=== PATIENT | female | born 1990 | race Caucasian/White ===

== ENCOUNTER → 2016-12-25 | Outpatient (CLI) | payer MEDICAID, OTHER ==
[~2016-12-25] VITALS: Ht 162.6 cm; Wt 84.8 kg
[~2016-12-25] MED LIST: /METO5TA PO; /PANT40TA PO; ACET325S2 PO; ACET50TA PO; ADDE10TA PO; ADDE30CA PO; BENA25CA PO; HYDR-3713 PO; IBUP60TA PO; LEVS0.124 SL; LIDOCAINE 2% INJ 100 MG/5 ML SDV (FOR ANES.) As Ordered ONE; NS 1,000 ML IV SCH; ONDANSETRON 4MG/2ML VIAL (J2405) As Ordered ONE; ONDANSETRON 4MG/2ML VIAL (J2405) IV ONE; OXYC-208 PO; OXYC7.5T PO; PERCOCET PO; PREN1TAB11 PO; PRENTAB9 PO; PROPOFOL 200 MG/20 ML VIAL As Ordered ONE; RANITAB PO; SENO8.6T9 OR; SIME80TA PO; TYLE325T5 OR; VALT1TAB PO; VITAPRTA PO; XANA1TAB2 PO; ZOFR4TAB3 SL; ZYRT10CA PO; depo provera IM
--- NOTE | 2016-12-25 08:46 | ROOR ---
Patient Name: Clementine Casey Procedure Date: 12/25/2016 8:26 AM Date of : 1990 Age: 26 Room: [facility] Gender: Female Note Status: Finalized Procedure: Colonoscopy to 50 Cms (POOR PREP) Indications: Rectal bleeding, Change in bowel habits Providers: Carlos Atwood MD Referring MD: VINAY JEFFRIES MD Requesting Provider: Medicines: Monitored Anesthesia Care Complications: No immediate complications. Procedure: Pre-Anesthesia Assessment: - The heart rate, respiratory rate, oxygen saturations, blood pressure, adequacy of pulmonary ventilation, and response to care were monitored throughout the procedure. The Colonoscope was introduced through the anus and advanced to the sigmoid colon. The colonoscopy was performed without difficulty. The patient tolerated the procedure well. The quality of the bowel preparation was inadequate. Findings: The perianal and digital rectal examinations were normal. External hemorrhoids were found during retroflexion. The hemorrhoids were small and Grade I (internal hemorrhoids that do not prolapse). The exam was otherwise normal throughout the examined colon. Impression: - Preparation of the colon was inadequate. - External hemorrhoids. - No specimens collected. - The exam was suboptimal due to patient preparation. Recommendation: - Patient has a contact number available for emergencies. The signs and symptoms of potential delayed complications were discussed with the patient. Return to normal activities tomorrow. Written discharge instructions were provided to the patient. - Discharge patient to home. - Continue present medications. - High fiber diet. - Repeat colonoscopy at age 52 for screening purposes. - Return to referring physician. - The findings and recommendations were discussed with the patient's family. Carlos Atwood MD Carlos Atwood MD 12/25/2016 8:45:47 AM This report has been signed electronically. Number of Addenda: 0 Note Initiated On: 12/25/2016 8:26 AM Estimated Blood Loss: Estimated blood loss: none.
[2016-12-25 09:25] VITALS: BP 121/72
== END | disposition home or self-care (01) ==
LOC: M OPP 07:53
PROVIDERS: ATTEND Internal Medicine Gastroenterology
DX: K64.0 First degree hemorrhoids (principal); K64.4 Residual hemorrhoidal skin tags; K62.5 Hemorrhage of anus and rectum; R19.4 Change in bowel habit; Z88.0 Allergy status to penicillin; Z88.1 Allergy status to other antibiotic agents; Z88.5 Allergy status to narcotic agent; Z88.8 Allergy status to other drugs, medicaments and biological substances; F17.210 Nicotine dependence, cigarettes, uncomplicated; Z79.899 Other long term (current) drug therapy; R12 Heartburn; M54.9 Dorsalgia, unspecified; F41.9 Anxiety disorder, unspecified

== ENCOUNTER → 2017-03-12 | Outpatient (CLI) | payer OTHER ==
[~2017-03-12] MED LIST changes: -LIDOCAINE 2% INJ 100 MG/5 ML SDV (FOR ANES.) As Ordered ONE; -NS 1,000 ML IV SCH; -ONDANSETRON 4MG/2ML VIAL (J2405) As Ordered ONE; -ONDANSETRON 4MG/2ML VIAL (J2405) IV ONE; -PROPOFOL 200 MG/20 ML VIAL As Ordered ONE
--- NOTE | 2017-03-13 03:15 | REP ---
Clinical: Trauma. Pain. Technique: AP, lateral, bilateral oblique views hands . Findings: The osseous structures and joint spaces are intact and normal. There is no evidence for acute fracture or dislocation. Surrounding soft tissues are unremarkable. No subcutaneous emphysema or radiodense foreign body. Impression: No acute fracture or dislocation. Signed by Tim Pardo MD 03/13/2017 03:06 A
== END ==
LOC: M SMT 10:33
PROVIDERS: ATTEND Family Medicine
DX: M79.641 Pain in right hand (principal)

== ENCOUNTER 2017-04-28 21:27 | Emergency (ER) | payer OTHER ==
[~2017-04-28] VITALS: Ht 162.6 cm; Wt 86.2 kg
[~2017-04-28 21:27] MED LIST changes: -ADDE30CA PO; +ADDE30CA3 PO
[2017-04-28] MEDS ORDERED: ADDE30CA3 PO (21:39)
[2017-04-28] MEDS ORDERED: MEDR15VL IM (21:43)
[2017-04-28 22:26] LABS: CONTROL LINE UCG INT CTR LINE PRESENT
[2017-04-28] MEDS ORDERED: NAPROXEN 250 MG TAB PO ONE (23:45)
[2017-04-29] MEDS ORDERED: PERCOCET 5MG/325MG TAB PO ONE (01:00)
--- NOTE | 2017-04-29 01:00 | REPUSA ---
CLINICAL HISTORY: Pelvic pain. History of ovarian cysts. TECHNIQUE: Realtime sonographic images were obtained in multiple projections via TA approach. COMMENTS: The uterus is anteverted measuring 8.9x4.4x5.2 cm. The endometrial echo pattern is within normal limi ts measuring 6.7 mm. There is no evidence of free fluid within the pelvic cul-de-sac. The right ovary measures 4.2x3x3.4 cm and the left ovary measures 2.4x1.7x2.1 cm. Both ovaries are fr ee of solid or cystic mass. There is a right ovarian follicle measuring 1.8 cm. The bladder measures a 4.3x5.1x6.6 cm. There is no evidence for abnormal vascularity. Normal bilateral ovarian flow. IMPRESSION: Right ovarian normal follicle. Otherwise, unremarkable exam. Thank you for your kind referral of this patient.
[2017-04-29 01:04] VITALS: BP 135/65
[2017-09-14] MEDS ORDERED: RANI75TA9 PO (18:21)
[2017-09-14] MEDS ORDERED: PREN200C PO (18:21)
[2017-09-14] MEDS ORDERED: FIOR1CAP PO (18:21)
== END 2017-04-29 01:05 | disposition home or self-care (01) ==
LOC: M ED 22:27
DX: R10.30 Lower abdominal pain, unspecified (principal); N83.01 Follicular cyst of right ovary; G43.909 Migraine, unspecified, not intractable, without status migrainosus; Z79.899 Other long term (current) drug therapy; Z88.0 Allergy status to penicillin; Z88.1 Allergy status to other antibiotic agents; Z88.5 Allergy status to narcotic agent

== ENCOUNTER 2017-07-01 17:53 | Emergency (ER) | payer OTHER ==
[~2017-07-01] VITALS: Ht 162.6 cm; Wt 85.3 kg
[~2017-07-01 17:53] MED LIST changes: +MEDR15VL IM
[2017-07-01] MEDS ORDERED: NS 1,000 ML IV ONE (20:00)
[2017-07-01 20:17] LABS: BASO % 0.3 % (0.0-1.0); EOS # 0.2 K/mm3 (0.0-0.50); EOS % 2.5 % (0.0-3.0); LARGE UNSTAINED CELL # 0.1 K/mm3 (0.0-0.4); LARGE UNSTAINED CELL % 1.4 % (0.0-4.0); LYMPH # 1.6 K/mm3 (1.5-6.5); MEAN CORPUSCULAR HEMOGLOBIN 30.6 pg (27.0-33.0); MEAN CORPUSCULAR HGB CONC 34.1 g/dl (32.0-36.5); MEAN CORPUSCULAR VOLUME 89.6 fl (80.0-96.0); MONO # 0.3 K/mm3 (0.0-0.8); MONO % 3.8 % (0.0-5.0); NEUTROPHILS # 4.6 K/mm3 (1.8-7.7); PLATELET COUNT, AUTOMATED 229 k/mm3 (150-450); RED CELL DISTRIBUTION WIDTH 12.6 % (11.5-14.5); WHITE BLOOD COUNT 6.6 K/mm3 (4.0-10.0)
[2017-07-01 20:51] LABS: ALBUMIN/GLOBULIN RATIO 1.14 (1.00-1.93); ALKALINE PHOSPHATASE 74 U/L (45-117); ALT/SGPT 19 U/L (12-78); ANION GAP 10 MEQ/L (8-16); AST/SGOT 9 U/L (15-37); BILIRUBIN,DIRECT < 0.1 MG/DL (0.0-0.2); BILIRUBIN,TOTAL 0.3 MG/DL (0.2-1.0); BLOOD UREA NITROGEN 12 MG/DL (7-18); CALCIUM LEVEL 9.3 MG/DL (8.5-10.1); CARBON DIOXIDE LEVEL 23 MEQ/L (21-32); CHLORIDE LEVEL 108 MEQ/L (98-107); CREATININE FOR GFR 0.72 MG/DL (0.55-1.02); GLOMERULAR FILTRATION RATE > 60.0 (>60); GLUCOSE, FASTING 90 MG/DL (70-105); POTASSIUM SERUM 3.8 MEQ/L (3.5-5.1); SODIUM LEVEL 141 MEQ/L (136-145); TOTAL PROTEIN 7.5 GM/DL (6.4-8.2)
[2017-07-01 21:10] LABS: HCG, SERUM QUANTITATIVE 522 MIU/ML
--- NOTE | 2017-07-01 21:20 | REPUSA ---
Clinical history: Pain. Findings: Real-time transabdominal and transvaginal ultrasound images of the pelvis were obtained. A retroverted uterus is noted, measuring 7.1 x 4.8 x 5.1 cm. The uterus demonstrates normal echotexture and echogenicity. The endometrial stripe measures 11 mm and is within normal limits. There is a smal l Nabothian cyst. The right ovary measures 2.6 x 1.2 x 2.4 cm. The left ovary measures 2.5 x 1.7 x 2. 3 cm. No adnexal masses are seen. Color Doppler flow is seen within both ovaries. There is no evidenc e of free fluid. Impression: No focal abnormality, without evidence of an intrauterine . Differential diagnos is includes early , missed , or ectopic . Follow-up with serial serum beta hCG levels is recommended for further evaluation.
[2017-07-01 22:22] VITALS: BP 118/69
[2017-09-14] MEDS ORDERED: PREN200C PO (18:21)
[2017-09-14] MEDS ORDERED: RANI75TA9 PO (18:21)
[2017-09-14] MEDS ORDERED: FIOR1CAP PO (18:21)
== END 2017-07-01 22:26 | disposition home or self-care (01) ==
LOC: M ED 17:53
DX: O99.89 Other specified diseases and conditions complicating pregnancy, childbirth and the puerperium (principal); G43.909 Migraine, unspecified, not intractable, without status migrainosus; N83.299 Other ovarian cyst, unspecified side; Z79.899 Other long term (current) drug therapy; Z3A.01 Less than 8 weeks gestation of pregnancy; Z88.1 Allergy status to other antibiotic agents; Z88.5 Allergy status to narcotic agent; Z88.0 Allergy status to penicillin

== ENCOUNTER 2017-07-03 21:54 | Emergency (ER) | payer OTHER ==
[~2017-07-03] VITALS: Ht 162.6 cm; Wt 85.5 kg
[~2017-07-03 21:54] MED LIST changes: -FIOR1CAP PO; -PREN200C PO; -RANI75TA9 PO; -TYLE325C PO
[2017-07-03] MEDS ORDERED: TYLE325C PO (22:18)
[2017-07-04 01:17] LABS: BASO % 0.5 % (0.0-1.0); EOS # 0.1 K/mm3 (0.0-0.50); EOS % 1.3 % (0.0-3.0); LARGE UNSTAINED CELL # 0.1 K/mm3 (0.0-0.4); LARGE UNSTAINED CELL % 2.3 % (0.0-4.0); LYMPH # 1.7 K/mm3 (1.5-6.5); LYMPH % 36.4 % (24.0-44.0); MEAN CORPUSCULAR HEMOGLOBIN 30.3 pg (27.0-33.0); MEAN CORPUSCULAR HGB CONC 34.4 g/dl (32.0-36.5); MEAN CORPUSCULAR VOLUME 88.1 fl (80.0-96.0); MONO # 0.2 K/mm3 (0.0-0.8); MONO % 5.2 % (0.0-5.0); NEUTROPHILS # 2.6 K/mm3 (1.8-7.7); NEUTROPHILS % 54.4 % (36.0-66.0); PLATELET COUNT, AUTOMATED 201 k/mm3 (150-450); RED CELL DISTRIBUTION WIDTH 12.4 % (11.5-14.5); WHITE BLOOD COUNT 4.7 K/mm3 (4.0-10.0)
[2017-07-04 01:43] LABS: CONTROL LINE HCG INT CTR LINE PRESENT
[2017-07-04 01:47] LABS: ANION GAP 7 MEQ/L (8-16); BLOOD UREA NITROGEN 8 MG/DL (7-18); CALCIUM LEVEL 8.7 MG/DL (8.5-10.1); CARBON DIOXIDE LEVEL 26 MEQ/L (21-32); CHLORIDE LEVEL 108 MEQ/L (98-107); CREATININE FOR GFR 0.65 MG/DL (0.55-1.02); GLOMERULAR FILTRATION RATE > 60.0 (>60); GLUCOSE, FASTING 89 MG/DL (70-105); POTASSIUM SERUM 3.8 MEQ/L (3.5-5.1); SODIUM LEVEL 141 MEQ/L (136-145)
--- NOTE | 2017-07-04 02:20 | REPUSA ---
CLINICAL HISTORY: Pain. TECHNIQUE: Endovaginal ultrasound of the pelvis was performed. FINDINGS: Uterus is normal in size measuring 7.8x4.6x5.5 cm. Retroverted uterus. Right ovary measures 2.8x1.2x1.3 cm. Left ovary measures 3.5x1.6x1-2.7 cm. Both ovaries are identified without adnexal mass or pelvic fluid collection. An anechoic structure is noted in the endometrial cavity measuring 4.4 mm. No decidual reaction is id entified. No pole is noted. IMPRESSION: Intrauterine anechoic structure as above. No adnexal mass. Followup is recommended.
[2017-07-04 02:31] LABS: HCG, SERUM QUANTITATIVE 972 MIU/ML
[2017-07-04 03:43] VITALS: BP 109/62
[2017-09-14] MEDS ORDERED: FIOR1CAP PO (18:21)
[2017-09-14] MEDS ORDERED: PREN200C PO (18:21)
[2017-09-14] MEDS ORDERED: RANI75TA9 PO (18:21)
== END 2017-07-04 03:44 | disposition home or self-care (01) ==
LOC: M ED 21:54
DX: O99.89 Other specified diseases and conditions complicating pregnancy, childbirth and the puerperium (principal); R10.9 Unspecified abdominal pain; Z79.899 Other long term (current) drug therapy; Z88.5 Allergy status to narcotic agent; Z88.0 Allergy status to penicillin; Z88.1 Allergy status to other antibiotic agents

== ENCOUNTER → 2017-07-03 | Outpatient (REF) | payer OTHER ==
[~2017-07-03] MED LIST changes: +FIOR1CAP PO; +PREN200C PO; +RANI75TA9 PO; +TYLE325C PO
== END ==
LOC: M LAB REF 08:15
PROVIDERS: ATTEND Physician Assistant
DX: Z32.00 Encounter for pregnancy test, result unknown (principal)

== ENCOUNTER 2017-07-09 23:46 | Emergency (ER) | payer OTHER ==
[~2017-07-09] VITALS: Ht 162.6 cm; Wt 81.8 kg
[~2017-07-09 23:46] MED LIST changes: +TYLE325C PO
[2017-07-10] MEDS ORDERED: LIDOCAINE VISCOUS 2% SOLN 15ML UDC PO ONE (00:45)
[2017-07-10] MEDS ORDERED: MAALOX 30 ML SUSP *UDC PO ONE (00:45)
[2017-07-10 01:51] VITALS: BP 110/59
[2017-09-14] MEDS ORDERED: FIOR1CAP PO (18:21)
[2017-09-14] MEDS ORDERED: PREN200C PO (18:21)
[2017-09-14] MEDS ORDERED: RANI75TA9 PO (18:21)
== END 2017-07-10 01:58 | disposition home or self-care (01) ==
LOC: M ED 23:46
DX: O99.89 Other specified diseases and conditions complicating pregnancy, childbirth and the puerperium (principal); G43.909 Migraine, unspecified, not intractable, without status migrainosus; O99.340 Other mental disorders complicating pregnancy, unspecified trimester; Z79.899 Other long term (current) drug therapy; Z88.5 Allergy status to narcotic agent; Z88.0 Allergy status to penicillin; Z88.1 Allergy status to other antibiotic agents; Z3A.00 Weeks of gestation of pregnancy not specified

== ENCOUNTER → 2017-07-25 | Outpatient (CLI) | payer OTHER ==
[~2017-07-25] MED LIST changes: +FIOR1CAP PO; +PREN200C PO; +RANI75TA9 PO
[2017-07-25 09:59] LABS: BASO % 0.2 % (0.0-1.0); EOS # 0.1 K/mm3 (0.0-0.50); EOS % 1.8 % (0.0-3.0); LARGE UNSTAINED CELL # 0.1 K/mm3 (0.0-0.4); LARGE UNSTAINED CELL % 1.4 % (0.0-4.0); LYMPH # 1.3 K/mm3 (1.5-6.5); LYMPH % 25.6 % (24.0-44.0); MEAN CORPUSCULAR HEMOGLOBIN 30.5 pg (27.0-33.0); MEAN CORPUSCULAR VOLUME 89.7 fl (80.0-96.0); MONO # 0.2 K/mm3 (0.0-0.8); MONO % 3.6 % (0.0-5.0); NEUTROPHILS # 3.4 K/mm3 (1.8-7.7); NEUTROPHILS % 67.6 % (36.0-66.0); PLATELET COUNT, AUTOMATED 185 k/mm3 (150-450); RED CELL DISTRIBUTION WIDTH 12.5 % (11.5-14.5)
[2017-07-25 12:48] LABS: HBsAg Prenatal NEGATIVE (NEGATIVE)
== END ==
LOC: M SMT 08:38
PROVIDERS: ATTEND Advanced Practice Midwife
DX: Z34.81 Encounter for supervision of other normal pregnancy, first trimester (principal)

== ENCOUNTER → 2017-10-10 | Outpatient (CLI) | payer OTHER ==
--- NOTE | 2017-10-10 11:52 | REP ---
Clinical: Anatomical evaluation. Comparison: 07/04/2017 . Findings: Examination demonstrates a single live intrauterine in cephalic presentation. motion is identified by technologist. Placenta is noted anteriorly and grade one without evidence for placenta previa or abruption. Amniotic fluid volume is normal. Cervix measures 3.2 cm in length and appears closed. No evidence for nuchal cord. Gestational age by LMP 19 weeks 5 days with NADRE 03/01/2018 . Gestational age by current measurements 19 weeks 0 days with NADER 03/06/2018 . FHR equals 138 beats per minute. BPD 4.4 cm 19 weeks 2 days HC 16.7 cm 19 weeks 3 days AC 13.9 cm 19 weeks 2 days FL 2.9 cm 18 weeks 6 days HL 2.6 cm 18 weeks 2 days HC/AC ratio 1.20 Estimated weight 277 grams ( 28th percentile). Anatomical assessment demonstrates normal structures including cranium, choroid plexus, cavum, cerebellum/posterior fossa, lungs, four-chamber heart, diaphragm, stomach, cord insertion/three-vessel cord, kidneys/bladder, spine, and extremities. Impression: Single live intrauterine in cephalic presentation demonstrating appropriate interval growth. While no gross abnormalities are identified, limited evaluation of the facial features and cardiac ventricular outflow tracts may warrant reevaluation and follow-up. Signed by Tim Pardo MD 10/10/2017 11:44 A
== END ==
LOC: M RAD 09:57
PROVIDERS: ATTEND Advanced Practice Midwife
DX: Z34.81 Encounter for supervision of other normal pregnancy, first trimester (principal)

== ENCOUNTER → 2017-11-28 | Outpatient (CLI) | payer OTHER ==
[2017-11-28 12:53] LABS: HEMATOCRIT 32.7 % (36.0-47.0); HEMOGLOBIN 11.1 g/dl (12.0-16.0); MEAN CORPUSCULAR HEMOGLOBIN 30.1 pg (27.0-33.0); MEAN CORPUSCULAR HGB CONC 33.9 g/dl (32.0-36.5); MEAN CORPUSCULAR VOLUME 88.6 fl (80.0-96.0); PLATELET COUNT, AUTOMATED 181 10^3/uL (150-450); RED BLOOD COUNT 3.69 10^6/uL (4.00-5.40); RED CELL DISTRIBUTION WIDTH 12.6 % (11.5-14.5); WHITE BLOOD COUNT 7.9 10^3/uL (4.0-10.0)
[2017-11-28 13:22] LABS: GLUCOSE CHALLENGE TEST 1 HOUR 153 MG/DL (LESS THAN 140)
[2017-12-01 09:30] LABS: TYPE AND SCREEN 1 1
== END ==
LOC: M LAB 10:16
DX: Z36.89 Encounter for other specified antenatal screening (principal); Z3A.00 Weeks of gestation of pregnancy not specified
CPT/HCPCS: 76816

== ENCOUNTER → 2017-12-12 | Outpatient (CLI) | payer OTHER ==
[2017-12-12 09:51] LABS: GLUCOSE, FASTING 84 MG/DL (LESS THAN 95)
[2017-12-12 10:34] LABS: 1 HR GLUCOSE 145 MG/DL (LESS THAN 180)
[2017-12-12 10:56] LABS: 2 HR GLUCOSE 139 MG/DL (LESS THAN 155)
[2017-12-12 12:33] LABS: 3 HR GLUCOSE 83 MG/DL (LESS THAN 140)
== END ==
LOC: M LAB 08:04
DX: Z36.89 Encounter for other specified antenatal screening (principal); Z3A.00 Weeks of gestation of pregnancy not specified
CPT/HCPCS: 82951

== ENCOUNTER → 2018-01-01 | Outpatient (REF) | payer OTHER | LOC: M LAB REF 20:44 | DX: J11.1 Influenza due to unidentified influenza virus with other respiratory manifestations (principal) | CPT/HCPCS: 87502 ==

== ENCOUNTER 2018-01-21 21:10 | Outpatient (CLI) | payer OTHER | END 2018-01-21 22:14 | disposition home or self-care (01) | LOC: M LDO 21:10 | DX: O26.893 Other specified pregnancy related conditions, third trimester (principal); R10.30 Lower abdominal pain, unspecified; M54.9 Dorsalgia, unspecified; O47.03 False labor before 37 completed weeks of gestation, third trimester; Z3A.33 33 weeks gestation of pregnancy ==

== ENCOUNTER → 2018-02-06 | Outpatient (CLI) | payer OTHER | LOC: M RAD 11:59 | DX: M79.605 Pain in left leg (principal) | CPT/HCPCS: 93971 ==

== ENCOUNTER → 2018-02-09 | Outpatient (REF) | payer OTHER | LOC: M LAB REF 16:57 | DX: Z34.83 Encounter for supervision of other normal pregnancy, third trimester (principal); Z3A.00 Weeks of gestation of pregnancy not specified ==

== ENCOUNTER 2018-02-28 12:13 | Outpatient (CLI) | payer OTHER | END 2018-02-28 13:25 | disposition home or self-care (01) | LOC: M LDO 12:13 | DX: O47.1 False labor at or after 37 completed weeks of gestation (principal); Z3A.38 38 weeks gestation of pregnancy ==

== ENCOUNTER 2018-03-05 14:32 | Inpatient (IN) | payer OTHER ==
[2018-03-05 15:59] LABS: HEMATOCRIT 34.1 % (36.0-47.0); HEMOGLOBIN 11.3 g/dl (12.0-15.5); MEAN CORPUSCULAR HEMOGLOBIN 27.8 pg (27.0-33.0); MEAN CORPUSCULAR HGB CONC 33.1 g/dl (32.0-36.5); PLATELET COUNT, AUTOMATED 215 10^3/uL (150-450); RED BLOOD COUNT 4.06 10^6/uL (4.00-5.40); RED CELL DISTRIBUTION WIDTH 14.6 % (11.5-14.5); WHITE BLOOD COUNT 8.9 10^3/uL (4.0-10.0)
[2018-03-05] MEDS: BICITRA 30ML SOLN UDC PO (16:10)
[2018-03-05] MEDS: LR 1,000 ML IV (17:30)
[2018-03-05] MEDS: OXYTOCIN DRIP 30 UNITS in APPROPRIATE DILUENT 1 EA IV (17:30)
[2018-03-05] MEDS: CALCIUM CARBONATE 500 MG CHEW U/D PO (20:45)
[2018-03-05] MEDS: BUTORPHANOL 2 MG/ML INJ (J0595) IV (22:15)
[2018-03-05] MEDS: PROMETHAZINE INJ 25 MG/ML VIAL (J2550) IV (22:30)
[2018-03-05] MEDS ORDERED: METHYLERGONOVINE MALEATE 0.2 MG TAB PO (23:45)
[2018-03-05] MEDS ORDERED: DIBUCAINE 1% OINTMENT 30GM TOP (23:45)
[2018-03-05] MEDS ORDERED: MOM 30ML SUSPENSION UDC PO (23:45)
[2018-03-05] MEDS ORDERED: ANUSOL HC CREAM 30GM TOP (23:45)
[2018-03-05] MEDS ORDERED: DOCUSATE SODIUM 100 MG CAP PO (23:45)
[2018-03-06] MEDS: OXYTOCIN DRIP 30 UNITS in APPROPRIATE DILUENT 1 EA IV (00:59)
[2018-03-06] MEDS: MEASLES,MUMPS,RUBELLA VACCINE INJ (MMR-II) (90707) SC (01:06)
[2018-03-06] MEDS: IBUPROFEN 800 MG TAB PO ×3 (01:13→19:59)
[2018-03-06] MEDS: PRENATAL VITAMINS CHEWABLE TABLET PO (08:59)
[2018-03-06] MEDS ORDERED: medroxyPROGESTERone ACET IM SUSP 150 MG/ML VIAL (J1050) IM (11:00)
[2018-03-06 12:38] LABS: FETAL SCREEN PROF. 1 1
[2018-03-06] MEDS: RHOGAM 300 MCG (1500 IU) INJ (J2790) IM (12:58)
[2018-03-06] MEDS: ACETAMINOPHEN 500 MG TAB PO (19:58)
[2018-03-07] MEDS: IBUPROFEN 800 MG TAB PO (07:52)
[2018-03-07] MEDS: PRENATAL VITAMINS CHEWABLE TABLET PO (07:53)
[2018-03-07] MEDS: medroxyPROGESTERone ACET IM SUSP 150 MG/ML VIAL (J1050) IM (09:55)
== END 2018-03-07 10:40 | disposition home or self-care (01) | DRG 560 ==
LOC: M LDI 14:32 → M OBS 03-06 00:55
PROVIDERS: Obstetrics & Gynecology
PROC: 10E0XZZ Delivery of Products of Conception, External Approach (ICD-10-PCS; principal; 2018-03-05)
PROC: 3E033VJ Introduction of Other Hormone into Peripheral Vein, Percutaneous Approach (ICD-10-PCS; 2018-03-05)
PROC: 30233S1 Transfusion of Nonautologous Globulin into Peripheral Vein, Percutaneous Approach (ICD-10-PCS; 2018-03-06)
DX: O80 Encounter for full-term uncomplicated delivery (principal); Z88.0 Allergy status to penicillin; Z37.0 Single live birth; Z3A.39 39 weeks gestation of pregnancy; Z90.49 Acquired absence of other specified parts of digestive tract; Z88.1 Allergy status to other antibiotic agents; Z88.5 Allergy status to narcotic agent

== ENCOUNTER → 2018-06-25 | Outpatient (REF) | payer OTHER ==
[2018-06-30 15:19] LABS: HPV HYBRID CAPTURE II Negative (Negative)
== END ==
LOC: M LAB REF 14:35
DX: Z12.4 Encounter for screening for malignant neoplasm of cervix (principal); R87.610 Atypical squamous cells of undetermined significance on cytologic smear of cervix (ASC-US)
CPT/HCPCS: 88142

== ENCOUNTER 2019-08-02 18:23 | Emergency (ER) | payer OTHER ==
[~2019-08-02] VITALS: Ht 162.6 cm; Wt 100.9 kg
[~2019-08-02 18:23] MED LIST changes: -/METO5TA PO; -/PANT40TA PO; -ACET50TA PO; +IBUP-1114 PO; +IBUP600T42 PO; -IBUP60TA PO; +MACR100C43 PO; +MAPA500T2 PO; +MEDR150I10 IM; -MEDR15VL IM; +METO1TAB88 PO; +ONDA-228 SL; +OXYC1TAB23 PO; -PERCOCET PO; +PROT1TAB2 PO; +RANI-356 PO; +RANI1SYP PO; +RANI75TA15 PO; -RANI75TA9 PO; -ZOFR4TAB3 SL
[2019-08-02] MEDS ORDERED: CLOTRIMAZOLE 1% TOPICAL CREAM 30GM TOP STA (22:33)
[2019-08-02] MEDS ORDERED: CLOTCRE3 TOP (22:35)
[2019-08-02 22:42] VITALS: BP 132/91
== END 2019-08-02 22:53 | disposition home or self-care (01) ==
LOC: M ED 18:23
DX: R21 Rash and other nonspecific skin eruption (principal); Z88.0 Allergy status to penicillin; Z88.1 Allergy status to other antibiotic agents; Z88.6 Allergy status to analgesic agent

== ENCOUNTER → 2019-08-25 | Outpatient (CLI) | payer OTHER ==
[~2019-08-25] MED LIST changes: +CLOTCRE3 TOP
[2019-08-25 13:17] LABS: BASO % 0.5 % (0.0-1.0); EOS # 0.2 10^3/uL (0.0-0.5); EOS % 2.4 % (0.0-3.0); HEMOGLOBIN 14.5 g/dl (12.0-15.5); LYMPH % 32.3 % (24.0-44.0); MEAN CORPUSCULAR HEMOGLOBIN 29.5 pg (27.0-33.0); MEAN CORPUSCULAR HGB CONC 34.5 g/dl (32.0-36.5); MEAN CORPUSCULAR VOLUME 85.4 fl (80.0-96.0); MONO # 0.4 10^3/uL (0.0-0.8); MONO % 6.7 % (0.0-5.0); NEUTROPHILS # 3.6 10^3/uL (1.5-8.5); NEUTROPHILS % 57.9 % (36.0-66.0); PLATELET COUNT, AUTOMATED 241 10^3/uL (150-450); RED BLOOD COUNT 4.92 10^6/uL (4.00-5.40); WHITE BLOOD COUNT 6.2 10^3/uL (4.0-10.0)
[2019-08-25 13:23] LABS: ALBUMIN 3.8 GM/DL (3.2-5.2); ALT/SGPT 23 U/L (12-78); BILIRUBIN,TOTAL 0.6 MG/DL (0.2-1.0); BLOOD UREA NITROGEN 11 MG/DL (7-18); CALCIUM LEVEL 9.5 MG/DL (8.5-10.1); CARBON DIOXIDE LEVEL 25 MEQ/L (21-32); CHLORIDE LEVEL 108 MEQ/L (98-107); CHOLESTEROL LEVEL 200 MG/DL (<200); CHOLESTEROL RISK RATIO 5.263 (<5); CREATININE FOR GFR 0.82 MG/DL (0.55-1.30); FREE T4 0.98 NG/DL (0.76-1.46); GLOMERULAR FILTRATION RATE > 60.0 (>60); GLUCOSE, FASTING 91 MG/DL (70-100); HDL CHOLESTEROL 38 MG/DL (>40); LDL CHOLESTEROL 128 MG/DL (<100); NON-HDL-C 162 MG/DL; POTASSIUM SERUM 4.4 MEQ/L (3.5-5.1); SODIUM LEVEL 138 MEQ/L (136-145); TRIGLYCERIDES LEVEL 172 MG/DL (<150)
[2019-08-25 13:26] LABS: TOTAL 25(OH) VITAMIN D 18.7 NG/ML (30.0-100.0)
[2019-08-25 13:55] LABS: HEMOGLOBIN A1c 5.2 %
[2019-08-27 00:07] LABS: ANA (HEP2) Negative (.); TISSUE TRANSGLUTAMINASE IgA <2 U/mL (0-3); TISSUE TRANSGLUTAMINASE IgG 4 U/mL (0-5)
== END ==
LOC: M SMT 11:10
PROVIDERS: ATTEND Physician Assistant
DX: Z13.29 Encounter for screening for other suspected endocrine disorder (principal); Z13.220 Encounter for screening for lipoid disorders; K58.0 Irritable bowel syndrome with diarrhea

== ENCOUNTER → 2019-12-10 | Outpatient (CLI) | payer OTHER ==
[~2019-12-10] MED LIST changes: -RANI-356 PO; +RANI-397 PO
[2019-12-10 09:10] LABS: BASO % 0.3 % (0.0-1.0); EOS # 0.1 10^3/uL (0.0-0.5); EOS % 2.2 % (0.0-3.0); HEMATOCRIT 38.6 % (36.0-47.0); LYMPH # 1.4 10^3/uL (1.5-5.0); LYMPH % 22.7 % (24.0-44.0); MEAN CORPUSCULAR HEMOGLOBIN 28.8 pg (27.0-33.0); MEAN CORPUSCULAR HGB CONC 33.7 g/dl (32.0-36.5); MEAN CORPUSCULAR VOLUME 85.6 fl (80.0-96.0); MONO # 0.4 10^3/uL (0.0-0.8); MONO % 5.9 % (0.0-5.0); NEUTROPHILS # 4.1 10^3/uL (1.5-8.5); NEUTROPHILS % 68.6 % (36.0-66.0); PLATELET COUNT, AUTOMATED 199 10^3/uL (150-450); RED BLOOD COUNT 4.51 10^6/uL (4.00-5.40)
[2019-12-10 09:39] LABS: ALBUMIN 3.7 GM/DL (3.2-5.2); ALT/SGPT 21 U/L (12-78); BILIRUBIN,TOTAL 0.5 MG/DL (0.2-1.0); BLOOD UREA NITROGEN 10 MG/DL (7-18); CALCIUM LEVEL 8.4 MG/DL (8.5-10.1); CARBON DIOXIDE LEVEL 24 MEQ/L (21-32); CHLORIDE LEVEL 110 MEQ/L (98-107); CHOLESTEROL LEVEL 184 MG/DL (<200); CHOLESTEROL RISK RATIO 5.935 (<5); CREATININE FOR GFR 0.78 MG/DL (0.55-1.30); FREE T4 1.22 NG/DL (0.76-1.46); GLOMERULAR FILTRATION RATE > 60.0 (>60); GLUCOSE, FASTING 78 MG/DL (70-100); HDL CHOLESTEROL 31 MG/DL (>40); LDL CHOLESTEROL 135 MG/DL (<100); NON-HDL-C 153 MG/DL; POTASSIUM SERUM 3.5 MEQ/L (3.5-5.1); SODIUM LEVEL 141 MEQ/L (136-145); TOTAL PROTEIN 6.8 GM/DL (6.4-8.2); TRIGLYCERIDES LEVEL 88 MG/DL (<150)
[2019-12-10 09:43] LABS: TOTAL 25(OH) VITAMIN D 49.3 NG/ML (30.0-100.0)
== END ==
LOC: M LAB 07:39
PROVIDERS: ATTEND Physician Assistant
DX: Z13.29 Encounter for screening for other suspected endocrine disorder (principal); E78.2 Mixed hyperlipidemia; E55.9 Vitamin D deficiency, unspecified

== ENCOUNTER → 2019-12-16 | Outpatient (REF) | payer OTHER | LOC: M WHC 11:48 | PROVIDERS: ATTEND Advanced Practice Midwife | DX: Z12.4 Encounter for screening for malignant neoplasm of cervix (principal) ==

== ENCOUNTER → 2020-07-05 | Outpatient (REF) | payer OTHER ==
[2020-07-06 05:41] LABS: APPEARANCE, URINE CLOUDY (CLEAR); BACTERIA, URINE AUTO 3+ (NEGATIVE); BILIRUBIN, URINE AUTO NEGATIVE (NEGATIVE); BLOOD, URINE BLOOD NEGATIVE (NEGATIVE); COLOR, URINE AMBER (YELLOW); GLUCOSE, URINE (UA) AUTO NEGATIVE (NEGATIVE); KETONE, URINE AUTO TRACE mg/dL (NEGATIVE); LEUKOCYTE ESTERASE, URINE AUTO TRACE (NEGATIVE); MUCUS, URINE LARGE (NEGATIVE); NITRITE, URINE AUTO POSITIVE (NEGATIVE); PROTEIN, URINE AUTO NEGATIVE (NEGATIVE); RBC, URINE AUTO 2 /HPF (0-3); SPECIFIC GRAVITY URINE AUTO 1.031 (1.002-1.035); SQUAMOUS EPITHELIAL CELL UR AU 2 /HPF (0-6); TRANSITIONAL EPITHELIAL AUTO 2 /HPF; WBC, URINE AUTO 24 /HPF (0-3)
== END ==
LOC: M LAB REF 15:07
PROVIDERS: ATTEND Physician Assistant
DX: N39.0 Urinary tract infection, site not specified (principal)

== ENCOUNTER → 2021-01-24 | Outpatient (REF) | payer OTHER | LOC: M SFHCWAGY 10:26 | PROVIDERS: ATTEND Obstetrics & Gynecology | DX: Z12.4 Encounter for screening for malignant neoplasm of cervix (principal) ==

== ENCOUNTER → 2021-02-09 | Outpatient (CLI) | payer OTHER | LOC: M LABSMTC 13:13 | PROVIDERS: ATTEND Family Medicine | DX: Z20.828 Contact with and (suspected) exposure to other viral communicable diseases (principal) | CPT/HCPCS: C9803; U0003 ==

== ENCOUNTER → 2021-02-12 | Outpatient (CLI) | payer OTHER | LOC: M LABSMTC 09:56 | PROVIDERS: ATTEND Pediatrics | DX: Z20.828 Contact with and (suspected) exposure to other viral communicable diseases (principal) ==

== ENCOUNTER → 2022-01-10 | Outpatient (REF) | payer OTHER | LOC: M LAB REF 16:55 | PROVIDERS: ATTEND Physician Assistant | DX: N76.0 Acute vaginitis (principal) ==

== ENCOUNTER → 2023-02-06 | Outpatient (REF) | payer OTHER | LOC: M SFHCWAGY 10:20 | PROVIDERS: ATTEND Specialist | DX: N39.0 Urinary tract infection, site not specified (principal) ==

== ENCOUNTER → 2023-03-06 | Outpatient (CLI) | payer OTHER | LOC: M PLALAB 12:00 | PROVIDERS: ATTEND Obstetrics & Gynecology | DX: Z34.83 Encounter for supervision of other normal pregnancy, third trimester (principal); Z3A.00 Weeks of gestation of pregnancy not specified | CPT/HCPCS: 36415; 86850; 86900; 86901; J2790 ==

== ENCOUNTER 2023-03-19 14:22 | Inpatient (IN) | payer OTHER ==
[~2023-03-19] VITALS: Ht 162.6 cm; Wt 102.4 kg
[2023-03-19] VITALS (15 sets, daily range): BP systolic 109–165; BP diastolic 55–98
[2023-03-19] MEDS ORDERED: ADDE10CA3 PO (14:55)
[2023-03-19] MEDS ORDERED: PRENTAB9 PO (14:55)
[2023-03-19] MEDS ORDERED: ceFAZolin SOD 2 GM in IV 1 EA IV STA (15:51)
[2023-03-19] MEDS ORDERED: LR 1,000 ML IV SCH ×2 (15:55)
[2023-03-19] MEDS ORDERED: CARBOPROST TROMETHAMINE 250 MCG/ML AMP IM PRN (15:55)
[2023-03-19] MEDS ORDERED: OXYTOCIN DRIP 30 UNITS in IV 1 EA IV PRN (15:55)
[2023-03-19] MEDS ORDERED: OXYTOCIN DRIP 30 UNITS in IV 1 EA IV SCH (15:55)
[2023-03-19] MEDS ORDERED: TRANEXAMIC ACID INJection 1,000 MG in NS 100 ML IV PRN (15:55)
[2023-03-19] MEDS ORDERED: METHYLERGONOVINE MALEATE 0.2MG/ML 1ML VIAL IM PRN (15:55)
[2023-03-19] MEDS ORDERED: LIDOCAINE 1% MDV 20ML VIAL INFIL PRN (15:55)
[2023-03-19 16:37] LABS: HEMATOCRIT 34.8 % (36.0-47.0); HEMOGLOBIN 11.8 g/dl (12.0-15.5); MEAN CORPUSCULAR HEMOGLOBIN 29.8 pg (27.0-33.0); MEAN CORPUSCULAR HGB CONC 33.9 g/dl (32.0-36.5); MEAN CORPUSCULAR VOLUME 87.9 fl (80.0-96.0); PLATELET COUNT, AUTOMATED 203 10^3/uL (150-450); RED BLOOD COUNT 3.96 10^6/uL (4.00-5.40)
[2023-03-19] MEDS ORDERED: KETOROLAC 30 MG/ML 1ML VIAL IV ONE (21:50)
[2023-03-19] MEDS ORDERED: DIBUCAINE 1% OINTMENT 30GM TOP PRN (22:00)
[2023-03-19] MEDS ORDERED: MOM 30ML SUSPENSION UDC PO PRN (22:00)
[2023-03-19] MEDS ORDERED: ANUSOL HC CREAM 30GM TOP PRN (22:00)
[2023-03-19] MEDS ORDERED: RHOGAM 300MCG (1500IU) INJ IM SCH (22:00)
[2023-03-19] MEDS ORDERED: METHYLERGONOVINE MALEATE 0.2 MG TAB PO PRN (22:00)
[2023-03-19] MEDS: ACETAMINOPHEN 500 MG TAB PO PRN (22:44)
[2023-03-20] MEDS ORDERED: ceFAZolin SOD 1 GM in D5W MINI-BAG PLUS 50 ML IV SCH (00:34)
[2023-03-20] MEDS: ACETAMINOPHEN 500 MG TAB PO PRN ×2 (05:47→14:05)
[2023-03-20 06:00] VITALS: BP 120/68
[2023-03-20] MEDS: PRENATAL VITAMINS CHEWABLE TABLET PO SCH (09:00)
[2023-03-20] MEDS: IBUPROFEN 600MG TAB PO PRN ×2 (09:01→19:59)
[2023-03-20] MEDS: DOCUSATE SODIUM 100MG CAPSULE PO PRN (14:04)
[2023-03-20 17:55] VITALS: BP 127/86
[2023-03-20 22:20] VITALS: BP 113/59
[2023-03-21] MEDS: DOCUSATE SODIUM 100MG CAPSULE PO PRN (05:45)
[2023-03-21 06:00] VITALS: BP 109/61
[2023-03-21] MEDS: PRENATAL VITAMINS CHEWABLE TABLET PO SCH (07:33)
[2023-03-21] MEDS ORDERED: MEASLES,MUMPS,RUBELLA VACCINE INJ (MMR-II) SC.IMMUN ONE (09:00)
[2023-03-21] MEDS ORDERED: medroxyPROGESTERone ACET IM SUSP 150 MG/ML VIAL IM ONE (10:15)
== END 2023-03-21 12:10 | disposition home or self-care (01) | DRG 560 ==
LOC: M LDO 14:22 → M LDI 15:42 → M OBS 23:14
PROVIDERS: ADMIT Advanced Practice Midwife; ATTEND Advanced Practice Midwife
PROC: 10E0XZZ Delivery of Products of Conception, External Approach (ICD-10-PCS; principal; 2023-03-19)
DX: O80 Encounter for full-term uncomplicated delivery (principal); Z88.0 Allergy status to penicillin; Z37.0 Single live birth; Z3A.37 37 weeks gestation of pregnancy; Z88.5 Allergy status to narcotic agent; Z88.8 Allergy status to other drugs, medicaments and biological substances

== ENCOUNTER 2023-05-21 08:15 | Day surgery (SDC) | payer OTHER ==
[~2023-05-21] VITALS: Ht 162.6 cm; Wt 90.3 kg
[~2023-05-21 08:15] MED LIST changes: +ADDE10CA3 PO; +KETOROLAC 60MG 2ML VIAL As Ordered ONE; +LIDOCAINE 2% 100MG/5ML SDV (FOR ANES.) As Ordered ONE; +OMEP40CA4 PO; +ONDANSETRON 4MG 2ML VIAL As Ordered ONE; +ROCURONIUM BROMIDE 50MG/5ML VIAL As Ordered ONE; +SUGAMMADEX SODIUM 500 MG/5 ML VIAL (BRIDION) As Ordered ONE; +propofoL 200 MG/20 ML VIAL As Ordered ONE
[2023-05-21 08:57] LABS: HEMATOCRIT 38.3 % (36.0-47.0); HEMOGLOBIN 12.7 g/dl (12.0-15.5); MEAN CORPUSCULAR HEMOGLOBIN 29.2 pg (27.0-33.0); MEAN CORPUSCULAR HGB CONC 33.2 g/dl (32.0-36.5); PLATELET COUNT, AUTOMATED 199 10^3/uL (150-450); RED BLOOD COUNT 4.35 10^6/uL (4.00-5.40); WHITE BLOOD COUNT 4.6 10^3/uL (4.0-10.0)
[2023-05-21] MEDS ORDERED: LR 1,000 ML IV SCH ×2 (09:30→11:45)
[2023-05-21] MEDS ORDERED: MIDAZOLAM INJ 2MG/2ML VIAL As Ordered ONE (09:46)
[2023-05-21] MEDS ORDERED: fentaNYL 100 MCG/2 ML INJECTION As Ordered ONE (09:46)
[2023-05-21] MEDS ORDERED: ACETAMINOPHEN 1000MG 100ML IV BAG As Ordered ONE (10:58)
[2023-05-21] MEDS ORDERED: fentaNYL 100 MCG/2 ML INJECTION IV PRN (11:45)
[2023-05-21] MEDS ORDERED: ONDANSETRON 4MG 2ML VIAL IV PRN (11:45)
[2023-05-21] MEDS ORDERED: KETOROLAC 30 MG/ML 1ML VIAL IV SCH (13:00)
[2023-05-21 13:35] VITALS: BP 125/70; TEMP 98.2; O2SAT 99
== END 2023-05-21 13:36 | disposition home or self-care (01) ==
LOC: M SDC 08:15
PROVIDERS: ATTEND Obstetrics & Gynecology
DX: Z30.2 Encounter for sterilization (principal); K21.9 Gastro-esophageal reflux disease without esophagitis; F41.9 Anxiety disorder, unspecified; Z79.899 Other long term (current) drug therapy; Z88.0 Allergy status to penicillin; Z88.1 Allergy status to other antibiotic agents; Z88.5 Allergy status to narcotic agent
CPT/HCPCS: 36415; 58661; 81025; 85027; 86850; 86900; 86901; 88302; J0131; J0665; J1100; J1885; J2250; J2405; J3010